=== PATIENT | male | born 1985 | race Caucasian/White ===

== ENCOUNTER → 2017-02-23 | Outpatient (CLI) | payer BC ==
--- NOTE | ~2017-02-23 | MR113 ---
[facility] A Service of [facility] & [facility] RADIOLOGY TEXT RESULTS PATIENT: DEENA GIRON LOCATION: [facility] : 89 UNIT #: [id number] AGE: [address]: Marquis Cash II, MD SEX: M ORDER DR: [id number] [facility] [address] [place], [place] [address] [id number] O MR#: [id number] Acc #: [id number] NAME: DEENA GIRON : 1985 SEX: M STUDY DATE/TIME: 02/23/2017 16:37 UNIT: [facility] ROOM: STUDY DESCRIPTION: MR Lumbar Wo Contrast Attending Physician: Marquis Cash II., M.D. Referring Physician: Marquis Cash II., M.D. Ordering Physician: Marquis Cash II., M.D. Primary Care Physician: Sanjana Desai D.O. MRI CENTER REPORT This report is preliminary unless electronic signature is present. EXAM MRI of the lumbar spine without contrast, dated 02/23/2017. COMPARISON MRI of cervical and thoracic spine dated 02/23/2017, plain films lumbar spine dated 12/05/2015. No prior CT or MRI lumbar spine studies. HISTORY Mid and low back pain with numbness and tingling in the left leg, getting worse in the last 4 months. Patient also has neck pain which extends to the left shoulder and left arm with numbness. FINDINGS Multisequence, multiplanar imaging of the lumbar spine was obtained without contrast. Vertebral body heights and alignment are preserved. Degenerative disc disease is seen at L4-5 and L5-S1. The conus terminates at T12-L1. Signal of conus and cauda equina are within normal limits. Pre and paravertebral soft tissues do not demonstrate any significant abnormality. Minimal disc bulges are noted in the upper lumbar spine without any significant canal stenosis or neural foraminal narrowing. L3-4: Mild disc bulge with borderline size canal. No neural foraminal narrowing. L4-5: Concentric disc bulge with superimposed [id number] central protrusion with annular fissure and mild canal stenosis. No neural foraminal narrowing. Minimal bilateral facet change. L5-S1: Concentric disc bulge with superimposed central to left subarticular protrusion with annular fissure and mild impingement of left S1 nerve root. Mild inferior left neural foraminal narrowing is seen with minimal bilateral facet change. [facility]. [facility] A Service of [facility] & [facility] RADIOLOGY TEXT RESULTS PATIENT: DEENA GIRON LOCATION: [facility] : 87 UNIT #: [id number] AGE: [address]: Marquis Cash II, MD SEX: M ORDER DR: ELVIS Degenerative changes are noted at multiple levels, relatively worse at L4-5 and L5-S1, as described above. STAT * RESULT Dictated by... Alex Amaya M.D. THIS IS AN ELECTRONICALLY VERIFIED REPORT Alex Amaya M.D. at 02/25/2017 12:48 PM CPR/jalondra TD: 02/24/2017 17:48 JOB #: [id number] MRI CENTER REPORT Page 1 of 1 COPY
--- NOTE | ~2017-02-23 | MR175 ---
[facility] A Service of [facility] & [facility] RADIOLOGY TEXT RESULTS PATIENT: DEENA GIRON LOCATION: [facility] : 89 UNIT #: [id number] AGE: [address]: Marquis Cash II, MD SEX: M ORDER DR: [id number] [facility] [address] [place], [place] [address] [id number] O MR#: [id number] Acc #: [id number] NAME: DEENA GIRON : 1985 SEX: M STUDY DATE/TIME: 02/23/2017 16:37 UNIT: [facility] ROOM: STUDY DESCRIPTION: MR Thoracic WWo Contrast Attending Physician: Marquis Cash II., M.D. Referring Physician: Marquis Cash II., M.D. Ordering Physician: Marquis Cash II., M.D. Primary Care Physician: Sanjana Desai D.O. MRI CENTER REPORT This report is preliminary unless electronic signature is present. EXAM MRI of the thoracic spine with and without contrast, dated 02/23/2017. COMPARISON MRI of the cervical and lumbar spine dated 02/23/2017. HISTORY Mid and low back pain with numbness and tingling in the left leg, getting worse in the last 4 months. FINDINGS Multisequence, multiplanar imaging of the thoracic spine was obtained with and without contrast. 17 mL of MultiHance was administered intravenously. Multilevel Schmorl nodes are noted particularly in the lower thoracic spine and to a lesser degree in the mid-thoracic spine. Vertically linear subtle increased T2 signal is noted within the thoracic cord from the level of T2 to the level of T4-5, most prominent at the level of T3-4 measuring 2 x 2 mm. It does not have any associated enhancement. It is an incidental tiny prominent central canal or less likely a tiny syrinx. Mild disc disease is seen in the thoracic spine with small central protrusion at T7-8, and probably at T5-6 and T6-7 based on the sagittal T2 sequence (series 4, image 7). No canal stenosis or neural foraminal narrowing. Mild facet changes are noted in the vno-es-muxcu thoracic spine. Tiny 5 mm lesion is noted in the left T9-10 neural foramen, best seen in the sagittal STIR and axial T2 sequence. It is not clearly identified in the sagittal T1 post-contrast sequence. It is very small and it measures about 5 mm. It is probably an incidental benign lesion. IMPRESSION 1. There is a nonenhancing vertically oriented increased T2 signal noted within the upper thoracic cord from the level of T2-3 to the level of T4-5, most prominent at the level of T3-4, measuring about 2 mm. It STS. [facility] A Service of [facility] RADIOLOGY TEXT RESULTS PATIENT: DEENA GIRON LOCATION: [facility] : 87 UNIT #: [id number] AGE: [address]: Marquis Cash II, MD SEX: M ORDER DR: is probably an incidental prominent central canal. Tiny syrinx cannot be excluded. It does not have any associated tumor. 2. Small central protrusion at T7-8 and mild disc disease adjacent to it. 3. No canal stenosis or neural foraminal narrowing. 4. 5 mm increased T2 signal lesion is noted in the left T9-10 neural foramen which is difficult to correlate in the post-contrast sequence. 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 STAT * RESULT Dictated by... Alex Amaya M.D. THIS IS AN ELECTRONICALLY VERIFIED REPORT Alex Amaya M.D. at 02/25/2017 12:48 PM CPR/estela TD: 02/24/2017 17:53 JOB #: [id number] MRI CENTER REPORT Page 1 of 1 COPY
--- NOTE | ~2017-02-23 | MR31 ---
[facility] A Service of [facility] & [facility] RADIOLOGY TEXT RESULTS PATIENT: DEENA GIRON LOCATION: [facility] : 89 UNIT #: [id number] AGE: [address]: Marquis Cash II, MD SEX: M ORDER DR: [id number] [facility] [address] [place], [place] [address] [id number] O MR#: [id number] Acc #: [id number] NAME: DEENA GIRON : 1985 SEX: M STUDY DATE/TIME: 02/23/2017 16:37 UNIT: [facility] ROOM: STUDY DESCRIPTION: MR Cervical WWo Contrast Attending Physician: Marquis Cash II., M.D. Referring Physician: Marquis Cash II., M.D. Ordering Physician: Marquis Cash II., M.D. Primary Care Physician: Sanjana Desai D.O. MRI CENTER REPORT This report is preliminary unless electronic signature is present. EXAM MRI of the cervical spine with and without contrast, dated 02/23/2017. COMPARISON MRI of the lumbar thoracic spine study dated 02/23/2017. Plain film cervical spine dated 11/14/2012. HISTORY Neck pain which extends to the left shoulder, left arm with numbness with low back pain with numbness and tingling in the left leg. It is getting worse in the last 4 months. FINDINGS Multisequence, multiplanar imaging of the cervical spine was obtained with and without contrast. 17 mL of MultiHance was administered intravenously. Vertebral body heights and alignment are preserved. Degenerative disc signal loss is noted throughout the visualized cervical spine from C2-3 to C6-7. No fracture, subluxation, bone edema or paraspinal muscle edema is seen. Cord demonstrates expected course, caliber and signal. Imaged posterior fossa and craniovertebral junction are grossly unremarkable. Central C5-6 and center to right subarticular C6-7 protrusions are noted, relatively prominent at C6-7 with mild mass effect on the adjacent thecal sac. Mild inferior bilateral neural foraminal encroachment are noted without any significant canal stenosis. Postcontrast sequences do not demonstrate enhancing masses associated with the cervical spine. Refer to MRI of the thoracic spine. There appears to be vertically-oriented increased T2 signal within the center of the visualized upper thoracic cord. It is probably an incidental prominent central canal. It is nonenhancing. IMPRESSION [facility]. [facility] A Service of [facility] & [facility] RADIOLOGY TEXT RESULTS PATIENT: DEENA GIRON LOCATION: [facility] : 89 UNIT #: [id number] AGE: [address]: Marquis Cash II, MD SEX: M ORDER DR: 1. Mild degenerative disc disease is seen particularly at C6-7. 2. No significant canal stenosis, neural foraminal narrowing or cord abnormality. 3. No enhancing abnormal cord mass. 4. Refer to MRI of the thoracic spine. There appears to be vertically-oriented increased T2 signal within the center of the visualized upper thoracic cord. It is probably an incidental prominent central canal. It is nonenhancing. STAT * RESULT Dictated by... Alex Amaya M.D. THIS IS AN ELECTRONICALLY VERIFIED REPORT Alex Amaya M.D. at 02/25/2017 12:48 PM CPR/jt TD: 02/24/2017 17:41 JOB #: [id number] MRI CENTER REPORT Page 1 of 1 COPY
== END | disposition home or self-care (01) ==
LOC: CMRI 15:38
DX: R20.2 Paresthesia of skin (principal); M50.323 Other cervical disc degeneration at C6-C7 level; M51.26 Other intervertebral disc displacement, lumbar region; M51.86 Other intervertebral disc disorders, lumbar region; M51.24 Other intervertebral disc displacement, thoracic region; R93.8 Abnormal findings on diagnostic imaging of other specified body structures
CPT/HCPCS: 72148; 72156; 72157; A9577